=== PATIENT | male | born 1965 | race Caucasian/White ===

== ENCOUNTER 2023-03-07 10:29 | Emergency (ER) | payer OTHER, SELFPAY ==
[2023-03-07 10:30] VITALS: BP 128/74; PULSE 79; RESP 18; TEMP 37.4; O2SAT 94
--- NOTE | 2023-03-07 10:41 | ED.GENADUL_ITS ---
Discharge Plan Disposition Patient Disposition: Home Discharge Details Clinical Impression: Normocytic anemia, Acute right lower quadrant pain, Acute diverticulitis Primary Care Provider: Unknown,Unknown ED Provider: Evert Renae Home Meds and New Rx's Prescriptions: New amoxicillin-pot clavulanate 875-125 mg tablet 1 tab PO BID 5 Days Qty: 10 0RF Continued omeprazole 20 mg Capsule,Delayed Release(Dr/Ec) 20 mg PO BID meloxicam 7.5 mg Tablet 7.5 mg PO BID olanzapine 10 mg Tablet 10 mg PO DAILY PRN Alvesco 80 mcg/actuation Hfa Aerosol Inhaler 1 - 2 puff INHALATION BID acetaminophen 325 mg Tablet 650 mg PO BID PRN albuterol sulfate [Ventolin HFA] 90 mcg/actuation HFA aerosol inhaler 2 puff INHALATION TID PRN Patient Comments: INAHLE 2 PUFFS 6 TIMES PER DAY NEEDED FOR WHEEZING Discharge Instructions Instructions: Diverticulitis (ED) Additional Instructions: Please read all of the information that accompanies these instructions. You were seen in the emergency department for your abdominal pain you. You are found to have diverticulitis which is an inflammation of your large intestines for which you are receiving an antibiotic that you should take as directed. Please return to the emergency department if you develop worsening pain fevers or cannot tolerate your antibiotics. For your pain please take medications as follows: 1. Take acetaminophen (Tylenol), 1,000 mg (two 500 mg tabs) every 6 hours 2. Take ibuprofen (Advil), 400 mg every 6 hours. Medical Decision Making This is an overall well-appearing normothermic and not tachycardic 57-year-old male with no prior history of colonoscopies now with right lower quadrant tenderness concerning for appendicitis, mass, and atypical diverticulitis. No pain out of proportion to suggest necrotizing soft tissue infection. No nausea nor vomiting to suggest small bowel obstruction and no history of any abdominal surgeries. No rash to abdomen to suggest zoster. Given right lower quadrant tenderness I am not concerned for ACS I did not obtain an ECG. No testicular pain to suggest torsion. No flank pain to suggest ureterolithiasis. No dysuria nor frequency to suggest urinary tract infection. No diarrhea nor any fevers nor history of inflammatory bowel disease so my suspicion for Crohn's or ulcerative colitis is low. Furthermore based on the patient's age new onset inflammatory bowel disease is unlikely. We will plan on obtaining CT scan with IV contrast and basic labs. Given the patient is incarcerated my suspicion for withdrawal from ethanol is low. I considered pancreatitis however the patient is not having any epigastric tenderness so I did not order a lipase. 12 PM Reassuring comprehensive metabolic panel. No prior for comparison. Normal renal function. CBC with mild normocytic anemia. No leukocytosis nor thrombocytopenia. 1:[address] skin showing acute uncomplicated diverticulitis with no signs of abscess nor perforation. Patient has not required IV analgesia. We will treat pain orally with acetaminophen and ibuprofen. He has been tolerating p.o. so I feel that he warrants an empiric trial of expectant outpatient management. Will antibiosis with amoxicillin clavulanic acid for 5 days and give patient initial dose in the ED. I have asked patient to return to the emergency department if he develops fevers, worsening pain, or if he cannot tolerate his oral antibiotics secondary to nausea or vomiting. HPI General Date/Time Provider Initiated Documentation: 03/07/23 10:41 . HPI Narrative: This is a 57-year-old male with a history of tobacco use and COPD currently incarcerated now in the emergency department in the setting of right lower quadrant pain. Patient notes that he had right lower quadrant pain that was gradual onset yesterday. Today it steadily worsened. He has not had any fevers diarrhea nausea nor vomiting. He has never had a colonoscopy and he denies any past abdominal surgeries. He has not noticed any rash to his abdomen. He denies any trauma to his abdomen. He denies dysuria and hematuria. He has never had ureterolithiasis. He denies chest pain and shortness of breath. Related Data Home Medications Medication Instructions Recorded Confirmed acetaminophen 325 mg tablet 650 mg PO BID PRN 03/07/23 03/07/23 albuterol sulfate 90 mcg/actuation 2 puff inhalation TID PRN 03/07/23 03/07/23 aerosol inhaler (Ventolin HFA) amoxicillin 875 mg-potassium 1 tab PO BID 5 days #10 tabs 03/07/23 clavulanate 125 mg tablet ciclesonide 80 mcg/actuation 1 - 2 puff inhalation BID 03/07/23 03/07/23 aerosol inhaler (Alvesco) meloxicam 7.5 mg tablet 7.5 mg PO BID 03/07/23 03/07/23 olanzapine 10 mg tablet 10 mg PO DAILY PRN 03/07/23 03/07/23 omeprazole 20 mg capsule,delayed 20 mg PO BID 03/07/23 03/07/23 release Previous Rx's Medication Instructions Recorded amoxicillin 875 mg-potassium 1 tab PO BID 5 days #10 tabs 03/07/23 clavulanate 125 mg tablet Allergies Allergy/AdvReac Type Severity Reaction Status Date / Time No Known Allergies Allergy Unverified 03/07/23 10:48 General Stated Complaint: Abd Prob LEONEL: 3 PFSH All Active Problems (Updated 03/07/23 @ 12:44 by Evert Renae MD) Normocytic anemia (Acute) Acute right lower quadrant pain (Acute) Acute diverticulitis (Acute) Social History Smoking risk assessment performed?: No Exam Narrative Exam Narrative: General: Well-appearing in no acute distress speaking in complete sentences. Shackled to stretcher with handcuffs on left lower extremity. Head: Normocephalic, atraumatic. Eye: Pupils equal, round reactive to light. Extraocular eye movements intact. No conjunctival injection. No scleral icterus. Ear, nose, mouth, throat: Grossly normal inspection. Normal voice, handling secretions normally. Neck: Trachea midline. Cardiovascular: Well-perfused distal extremities. Regular rate and rhythm. Respiratory: Nonlabored respiration. Clear lungs bilaterally. Gastrointestinal: Nondistended abdomen. Soft minimal right lower quadrant tenderness. No rebound. No guarding. Musculoskeletal: No edema. Moving all 4 extremities spontaneously. Skin: Normal for age and race, grossly normal temperature and turgor. No acute rash. Neurologic: Alert and appropriate, no apparent acute deficits. Psychiatric: Mood and manner are appropriate. Grooming and personal hygiene are appropriate. Course Vital Signs Vital signs: Vital Signs Temperature 37.4 C 03/07/23 10:30 Pulse 79 03/07/23 10:30 Respiratory Rate 18 03/07/23 10:30 Blood Pressure 128/74 03/07/23 10:30 Pulse Oximetry 94 03/07/23 10:30 Temperature 37.4 C 03/07/23 10:30 Temperature Source Skin 03/07/23 10:30 Pulse 79 03/07/23 10:30 Respiratory Rate 18 03/07/23 10:30 Blood Pressure 128/74 03/07/23 10:30 Blood Pressure Position Supine 03/07/23 10:30 Pulse Oximetry 94 03/07/23 10:30 Oxygen Delivery Method Room Air 03/07/23 10:30 Oxygen Flow Rate 0 03/07/23 10:30 Pain Level 8 03/07/23 10:30
--- NOTE | 2023-03-07 10:45 | DI.CT_ITS ---
Exam(s) CT ABDOMEN PELVIS W EXAM: CT ABDOMEN PELVIS W CLINICAL HISTORY: Right lower quadrant pain. TECHNIQUE: Imaging Protocol: Axial computed tomography images with coronal and sagittal reformatted images were created and reviewed CONTRAST MATERIAL: Intravenous: Omnipaque 350 Contrast volume:100 ml Oral: no COMPARISON: No exams were available for comparison FINDINGS: ABDOMEN: Lung Bases: Normal where visualized. Liver: Normal density. No measurable mass. Gallbladder and biliary tract: No radiodense calculus or dilation. Pancreas: Normal density, no abnormal calcifications or inflammatory process. Spleen: Normal. Kidneys: Normal size, contour and axis. No radiodense stones or obstructive uropathy. No suspicious m asses seen. Adrenal glands: No masses seen. Abdominal Aorta: Abdominal portion non-dilated. Soft tissues: Unremarkable. PELVIS: Bladder: Distended. No gross wall thickening. No calculi.No focal mass. Bowel: No obstruction. diverticulosis noted throughout the colon. Area of inflammation at the cecum consistent with diverticulitis. Appendix normal. Peritoneal cavity: Mild inflammation around the cecum. No perforation or abscess. Bones: Degenerative changes. Reproductive organs: Within normal limits. Lymph nodes: Unremarkable. Impression: Uncomplicated diverticulitis at the cecum. Findings discussed with Dr. Renae of the emergency department. RADIATION DOSE DELIVERED: 706.79mGy.cm Total DLP DATA REPOSITORY: All CT scans at this facility are submitted to the National Radiology Data Registry (NRDR) Dose Index Registry (DIR) with the [employer] ([employer]). RADIATION OPTIMIZATION: All CT scans at this facility use at least one of these dose optimization te chniques: automated exposure control; mA and/or kV adjustment per patient size (includes targeted exa ms where dose is matched to clinical indication); or iterative reconstruction.
[2023-03-07 11:18] LABS: Abs Immature Grans 0.07 10^3/uL (0.0-0.06); Absolute Basophil Count 0.03 10^3/uL (0.0-0.2); Absolute Lymphocyte Count 1.57 10^3/uL (1.2-3.4); Absolute Monocyte Count 0.71 10^3/uL (0.1-0.8); Absolute Neutrophil Count 6.04 10^3/uL (1.2-6.7); Basophils % 0.3; Eosinophils % 2.3; HCT 35.6 % (40.0-50.0); HGB 12.1 g/dL (13.5-17.5); Immature Grans % 0.8; Lymphocytes % 18.2; MCH 30.8 pg (27.0-33.0); MCV 91 fL (80-95); MPV 9.5 fL (8.0-11.0); Monocytes % 8.2; Neutrophils % 70.2; Platelet Count 199 10^3/uL (130-400); RBC 3.93 10^6/uL (4.36-5.78); RDW 12.9 % (11.8-14.1); RDW-SD 43.1 fL; WBC 8.62 10^3/uL (4.4-10.8)
[2023-03-07 11:24] LABS: ALT 27 U/L (16-63); AST 13 U/L (15-37); Albumin 3.4 g/dL (3.4-5.0); Alkaline Phosphatase 75 U/L (46-116); Anion Gap 7.9 mmol/L (3-11); BUN 16 mg/dL (7-18); Bilirubin, Total 0.3 mg/dL (0.2-1.0); CO2 29.1 mmol/L (21.0-32.0); CREATININE 0.8 mg/dL (0.70-1.30); Calcium 8.5 mg/dL (8.5-10.1); Chloride 106 mmol/L (98-107); Estimated GFR 102.58 (mL/min/1.73m2); Glucose 101 mg/dL (74-106); Potassium 3.9 mmol/L (3.5-5.1); Sodium 143 mmol/L (136-145); Total Protein 6.6 g/dL (6.4-8.2)
[2023-03-07] MEDS: Normal Saline 1,000 ML 1000 ML IV (11:32)
[2023-03-07 11:50] VITALS: BP 124/67; PULSE 65; RESP 18; TEMP 36.4; O2SAT 95
[2023-03-07] MEDS: Normal Saline - Diluent 50 ML VIAL IV (12:19)
[2023-03-07] MEDS: Omnipaque 350 MG/ML 500 ML BTL-Imaging package IJ (12:20)
[2023-03-07] MEDS: Normal Saline Flush 10 ML SYR IVP (12:20)
[2023-03-07 12:55] VITALS: BP 156/95; PULSE 75; RESP 15; TEMP 36.5; O2SAT 96
[2023-03-07] MEDS: Amoxicillin 875/Clav. 125 TAB PO (12:56)
[2023-03-07] MEDS: Acetaminophen 500 MG TAB 1000 MG PO (12:56)
[2023-03-07] MEDS: Ibuprofen 600 MG TAB PO (12:57)
== END 2023-03-07 13:03 | disposition home or self-care (01) ==
PROVIDERS: Emergency Provider Emergency Medicine
DX: D64.9 Anemia, unspecified (principal); K57.92 Diverticulitis of intestine, part unspecified, without perforation or abscess without bleeding; J44.9 Chronic obstructive pulmonary disease, unspecified
CPT/HCPCS: 36415; 80053; 96360; 99285; 74177; 85025; 99284

== ENCOUNTER 2023-09-27 13:47 | Emergency (ER) | payer OTHER, SELFPAY ==
--- NOTE | 2023-09-27 13:45 | DI.CT_ITS ---
Exam(s) CT ABDOMEN PELVIS W EXAM: CT ABDOMEN PELVIS W CLINICAL HISTORY: RLQ abdominal pain. TECHNIQUE: Imaging Protocol: Axial computed tomography images with coronal and sagittal reformatted images were created and reviewed CONTRAST MATERIAL: Intravenous: Omnipaque 350 Contrast volume:100 ml Oral: no COMPARISON: CT CT ABDOMEN PELVIS W from 03/07/2023 FINDINGS: ABDOMEN and PELVIS: Lung Bases: No acute findings. Liver: Normal density. No measurable mass. Gallbladder and biliary tract: No radiodense calculus or dilation. Pancreas: Normal density. No abnormal calcifications or inflammatory process. No evidence of mass. Spleen: Normal. Kidneys: Normal size, contour and axis. No radiodense stones. No obstructive uropathy. No suspicious masses seen. Adrenal glands: No masses seen. Vasculature: Abdominal aorta non-dilated. Atherosclerotic changes. Soft tissues: Small fatty containing inguinal hernias. Bladder: No gross wall thickening. No calculi.No focal mass. Bowel: Diverticulosis. No obstruction. Thickening of the lateral wall of the cecum with some STIR s tranding in the surrounding fat. Diverticula are noted in the vicinity. This may represent divertic ulitis however mass not excluded.. This is in the same location as on the prior exam. Appendix norm al. Peritoneal cavity: No ascites. No focal collection or mesenteric inflammatory response. Bones: Unremarkable for age. Reproductive organs: Within normal limits. Lymph nodes: Small lymph nodes noted right lower quadrant. Present on prior exam. IMPRESSION:: Wall thickening and stool and surrounding stranding at the cecum may represent divertic ulitis. Malignancy should also be considered since this is in the same location as on the prior exa m. Colonoscopy recommended. RADIATION DOSE DELIVERED: Total DLP DATA REPOSITORY: All CT scans at this facility are submitted to the National Radiology Data Registry (NRDR) Dose Index Registry (DIR) with the [employer] (ACR). RADIATION OPTIMIZATION: All CT scans at this facility use at least one of these dose optimization te chniques: automated exposure control; mA and/or kV adjustment per patient size (includes targeted exa ms where dose is matched to clinical indication); or iterative reconstruction.
[2023-09-27 13:53] VITALS: BP 137/61; PULSE 76; RESP 16; TEMP 36.7
--- NOTE | 2023-09-27 13:57 | W.ED.GENAD ---
Discharge Plan Disposition Patient Disposition: [facility] Discharge Details Clinical Impression: Diverticulitis, Acute right lower quadrant pain Primary Care Provider: Unknown,Unknown ED Provider: Reina Jordan Home Meds and New Rx's Prescriptions: New amoxicillin-pot clavulanate 875-125 mg tablet 1 tab PO BID 7 Days Qty: 14 0RF No Action meloxicam 7.5 mg Tablet 7.5 mg PO BID Alvesco 80 mcg/actuation Hfa Aerosol Inhaler 1 - 2 puff INHALATION BID acetaminophen 325 mg Tablet 650 mg PO BID PRN albuterol sulfate [Ventolin HFA] 90 mcg/actuation HFA aerosol inhaler 2 puff INHALATION TID PRN Patient Comments: INAHLE 2 PUFFS 6 TIMES PER DAY NEEDED FOR WHEEZING Discharge Instructions Instructions: Diverticulitis (ED) Additional Instructions: Please take antibiotics twice daily as prescribed. Return to the emergency department with worsened pain, rectal bleeding, nausea, vomiting, worsened fever or inability to tolerate the medication. Please schedule a colonoscopy after you complete your medication course to reevaluate your bowel and ensure that this area of inflammation around your cecum has healed. Referrals: [facility] [OTHER] - (needs colonoscopy ) Medical Decision Making Emergent evaluation of abdominal pain. Patient is currently incarcerated. He is hemodynamically stable and afebrile here. Slightly elevated temperature at detention. He does have some abdominal tenderness on exam but overall exam reassuring. Given his history of diverticulitis, will evaluate with CT imaging, check blood work, and reassess for acute surgical needs. 1415: WBC not elevated. Prior anemia resolved. 1425: ESR within normal limits, CRP slightly elevated. CMP without significant derangement. 1535: exam remains benign. CT scan reviewed. He has no appendicitis, there is inflammatory change around the cecum. I reviewed the CT scan obtained in February of this year and noted the same changes to the cecum. I have placed a referral for the patient to the surgery clinic to get a colonoscopy. I feel that given the persistent location of these inflammatory changes the cecum should be further evaluated. The patient's lab work is very reassuring. It is unclear if this is a true diverticulitis or another abnormality in this area. However given his acute presentation of pain I will treat for diverticulitis. I will give the first dose of Augmentin in the emergency department and discharged with a prescription for this. Medical Records Medical records reviewed: Yes I reviewed the patient's medical records. Medical records narrative: Diverticulitis in February 2023 Lab Data Lab results reviewed: Yes I reviewed the patient's lab results. HPI General Date/Time Provider Initiated Documentation: 09/27/23 13:56. Limitations to Documentation: no limitations. Information obtained by: patient. HPI Narrative: 57-year-old gentleman with past medical history of diverticulitis presents for evaluation of right lower quadrant abdominal pain. Patient reports that symptoms started yesterday. It is constant. It is localized to the right lower quadrant. Not associated with nausea and vomiting. Slightly elevated temperature at detention of 99. He received a dose of Tylenol earlier this morning. He denies any difficulty with urination, hematuria. Denies any history of kidney stone. Denies any changes in his bowel. Related Data Home Medications Medication Instructions Recorded Confirmed acetaminophen 325 mg tablet 650 mg PO BID PRN 03/07/23 09/27/23 albuterol sulfate 90 mcg/actuation 2 puff inhalation TID PRN 03/07/23 09/27/23 aerosol inhaler (Ventolin HFA) ciclesonide 80 mcg/actuation 1 - 2 puff inhalation BID 03/07/23 09/27/23 aerosol inhaler (Alvesco) meloxicam 7.5 mg tablet 7.5 mg PO BID 03/07/23 09/27/23 amoxicillin 875 mg-potassium 1 tab PO BID 7 days #14 tabs 09/27/23 clavulanate 125 mg tablet Previous Rx's Medication Instructions Recorded amoxicillin 875 mg-potassium 1 tab PO BID 7 days #14 tabs 09/27/23 clavulanate 125 mg tablet Allergies Allergy/AdvReac Type Severity Reaction Status Date / Time No Known Allergies Allergy Unverified 09/27/23 14:02 General Stated Complaint: Abd Prob LEONEL: 3 PFSH All Active Problems (Updated 09/27/23 @ 15:33 by Reina Jordan MD) Acute right lower quadrant pain (Acute) Diverticulitis (Chronic) Social History Smoking/Tobacco Use Status: Former Tobacco Use Quit Date: 05/27/23 Smoking risk assessment performed?: Yes Alcohol Intake: former Substance use type: does not use Housing: homeless Do you feel safe at home: Yes Do you feel safe in your relationship?: Yes Exam Narrative Exam Narrative: Review of Systems: All systems reviewed & are unremarkable except as noted in HPI and below: Initial examination limited as the patient is in police custody and wrist, ankle and waist handcuffs are in place CONSTITUTIONAL: Alert and oriented Well-developed, no acute distress HEENT: NACT EYES: PERRL, no conjunctival injection EARS: no external abnormality NOSE nares patent MOUTH Moist MM NECK: Symmetric, trachea midline, No thyromegaly THROAT oropharynx clear CVS: RRR, No murmurs or gallops. Peripheral pulses 2+ and equal in all extremities Brisk capillary refill in all extremities. No peripheral edema RESP: Unlabored respiratory effort, Clear to auscultation bilaterally No wheezes rales or rhonchi GI: Soft, mild right lower quadrant tenderness, no guarding or rebound, Nondistended, No organomegaly, no CVAT MSK: Extremities with full range of motion, no deformity or TTP SKIN: Warm, Dry. No rashes or lesions. NEURO: No focal neurologic deficits. 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
[2023-09-27 14:08] LABS: Abs Immature Grans 0.04 10^3/uL (0.0-0.06); Absolute Basophil Count 0.05 10^3/uL (0.0-0.2); Absolute Eosinophil Count 0.29 10^3/uL (0.0-0.7); Absolute Lymphocyte Count 2.19 10^3/uL (1.2-3.4); Absolute Monocyte Count 0.76 10^3/uL (0.1-0.8); Absolute Neutrophil Count 4.45 10^3/uL (1.2-6.7); Basophils % 0.6; Eosinophils % 3.7; HCT 40.8 % (40.0-50.0); HGB 14.3 g/dL (13.5-17.5); Immature Grans % 0.5; Lymphocytes % 28.1; MCH 31.1 pg (27.0-33.0); MCV 89 fL (80-95); MPV 9.4 fL (8.0-11.0); Monocytes % 9.8; Neutrophils % 57.3; Platelet Count 232 10^3/uL (130-400); RDW 12.2 % (11.8-14.1); RDW-SD 39.1 fL; WBC 7.78 10^3/uL (4.4-10.8)
[2023-09-27] MEDS: Ondansetron 4 MG/2 ML VIAL IVP (14:12)
[2023-09-27] MEDS: Ketorolac 15 MG/ML VIAL 10 MG IVP (14:12)
[2023-09-27 14:19] LABS: ESR 4 mm/hr (0-20)
[2023-09-27 14:23] LABS: ALT 19 U/L (16-63); AST 16 U/L (15-37); Albumin 3.8 g/dL (3.4-5.0); Alkaline Phosphatase 96 U/L (46-116); Anion Gap 4.4 mmol/L (3-11); BUN 13 mg/dL (7-18); Bilirubin, Total 0.5 mg/dL (0.2-1.0); CO2 32.6 mmol/L (21.0-32.0); Calcium 9.2 mg/dL (8.5-10.1); Chloride 104 mmol/L (98-107); Estimated GFR 87.24 (mL/min/1.73m2); Glucose 115 mg/dL (74-106); Potassium 3.9 mmol/L (3.5-5.1); Sodium 141 mmol/L (136-145); Total Protein 7.3 g/dL (6.4-8.2)
[2023-09-27] MEDS: Normal Saline - Diluent 50 ML VIAL IJ (14:48)
[2023-09-27] MEDS: Normal Saline Flush 10 ML SYR IVP (14:48)
[2023-09-27] MEDS: Omnipaque 350 MG/ML 100 ML BTL IJ (14:49)
--- NOTE | 2023-09-27 15:11 | DI.VRAD_ITS ---
PROCEDURE INFORMATION: Exam: CT Abdomen And Pelvis With Contrast Exam date and time: 09/27/2023 2:47 PM Age: 57 years old Clinical indication: Other: Rlq abdominal pain TECHNIQUE: Imaging protocol: Computed tomography of the abdomen and pelvis with contrast. Radiation optimization: All CT scans at this facility use at least one of these dose optimization techniques: automated exposure control; mA and/or kV adjustment per patient size (includes targeted exams where dose is matched to clinical indication); or iterative reconstruction. Contrast material: OMNI 350; Contrast volume: 100 ml; Contrast route: INTRAVENOUS (IV); COMPARISON: CT ABDOMEN PELVIS W 03/07/2023 11:59 AM FINDINGS: Liver: Normal. No mass. Gallbladder and bile ducts: Normal. No calcified stones. No ductal dilation. Pancreas: Normal. No ductal dilation. Spleen: Normal. No splenomegaly. Adrenal glands: Normal. No mass. Kidneys and ureters: Normal. No hydronephrosis. Stomach and bowel: Diverticulosis of the colon. Bowel wall thickening and perinephric inflammatory changes in the cecum. Series 4, image 41-44. This may represent diverticulitis of the cecum.. Appendix: Normal appendix Intraperitoneal space: Unremarkable. No free air. No significant fluid collection. Vasculature: Unremarkable. No abdominal aortic aneurysm. Lymph nodes: Unremarkable. No enlarged lymph nodes. Urinary bladder: Unremarkable as visualized. Reproductive: Unremarkable as visualized. Bones/joints: Unremarkable. No acute fracture. Soft tissues: Unremarkable. IMPRESSION: Diverticulosis of the colon. Bowel wall thickening and perinephric inflammatory changes in the cecum. Series 4, image 41-44. This may represent diverticulitis of the cecum.. . As an underlying malignancy cannot be entirely excluded, a follow-up examination after a course of treatment is recommended if clinically warranted. Impression. Dictated and Authenticated by: René Ruby MD. Ordering:[facility] Nikki Ibarra MD
[2023-09-27] MEDS: Amoxicillin 875/Clav. 125 TAB PO (15:50)
[2023-09-27 15:53] VITALS: BP 132/80; PULSE 77; RESP 18; TEMP 36.9; O2SAT 96
--- NOTE | 2023-09-27 16:02 | NUR.NOTE ---
[facility] is being referred for [facility]. Referral for awareness. Nursing Note:
== END 2023-09-27 16:03 ==
LOC: ER 13:51 → RED 13:51 → ER 13:52
PROVIDERS: Emergency Provider Emergency Medicine
DX: R10.31 Right lower quadrant pain (principal); K57.92 Diverticulitis of intestine, part unspecified, without perforation or abscess without bleeding; R50.9 Fever, unspecified; Z87.891 Personal history of nicotine dependence
CPT/HCPCS: 36415; 80053; 85652; 96374; 96375; 99285; 74177; 85025; 86140; 99284; J1885; J2405; J3490

== ENCOUNTER 2023-11-28 06:15 | Day surgery (SDC) | payer OTHER, SELFPAY ==
--- NOTE | 2023-11-27 16:36 | ANES.PREOP_ITS ---
General Info Date of Service Date Performed: 11/28/23 Height: 5 ft 7 in Weight: 79.974 kg Body Mass Index (BMI): 27.6 Surgical Procedure: Operation Date: 11/28/23 07:35 Proposed Procedure Side Surgeon p Colonoscopy Popeye Silva MD Meds Allergies and Home Medications Allergies Allergy/AdvReac Type Severity Reaction Status Date / Time No Known Allergies Allergy Unverified 11/28/23 06:27 Home Medication Medication Instructions Recorded acetaminophen 325 mg tablet 650 mg PO BID PRN 03/07/23 albuterol sulfate 90 mcg/actuation 2 puff inhalation TID PRN 03/07/23 aerosol inhaler (Ventolin HFA) aspirin 81 mg tablet,delayed 81 mg PO DAILY 10/08/23 release cetirizine 10 mg capsule (All Day 10 mg PO DAILY PRN 10/08/23 Allergy (cetirizine)) terbinafine HCl 250 mg tablet 250 mg PO DAILY 10/08/23 mometasone-formoterol HFA 100 2 inh inhalation BID 11/27/23 mcg-5 mcg/actuation aerosol inhaler (Dulera) Current Visit Medications: Current Medications Generic Name Dose Route Start Last Admin Trade Name Freq PRN Reason Stop Dose Admin Ringer's Solution 1,000 mls @ 80 mls/hr 11/28/23 06:00 IV 11/28/23 23:59 INFUSION RITCHIE IV Miscellaneous Supplies 1 each 11/28/23 06:00 Iv Access IV 11/28/23 23:59 DIRECTED RITCHIE Sodium Chloride 0 ml 11/28/23 06:00 Normal Saline Flush 10 Ml Syr IV 11/28/23 23:59 PRN PRN Sodium Chloride 0 ml 11/28/23 06:00 Normal Saline 10 Ml Vial IJ 11/28/23 23:59 DIRECTED PRN Sterile Water 0 ml 11/28/23 06:00 Water,Injection,Sterile 10 Ml Vial IJ 11/28/23 23:59 DIRECTED PRN PFSH Active Problems Active Problems: Problem Status Onset Code Abnormal CT scan, colon R93.3 Diverticulosis K57.90 COPD (chronic obstructive pulmonary disease) J44.9 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 psychiatric conditions- notes from psychiatric assessment were vague. Depression Olecranon bursitis, right elbow Headache Lactose intolerance Tobacco Smoking/Tobacco Use Status: Former Tobacco Use Alcohol Alcohol Intake: former Substance Use Substance use type: does not use Vital Signs and Lab Results Vital Signs Most Recent Vital Signs in EMR: Temp Pulse Resp BP Pulse Ox 36.7 C 82 18 141/97 H 96 11/28/23 06:15 11/28/23 06:15 11/28/23 06:15 11/28/23 06:15 11/28/23 06:15 Lab Results Blood Type / Crossmatch: No Data to Display Complete Blood Count: No Data to Display Complete Metabolic Panel: No Data to Display Liver Function Panel: No Data to Display Coagulation Panel: No Data to Display Cardiac Panel: No Data to Display Arterial Blood Gas: No Data to Display Venous Blood Gas: No Data to Display Pancreas Panel: No Data to Display Thyroid Panel: 2 No Data to Display Infectious Disease: No Data to Display Blood Cultures: No Data to Display Toxicology Panel: No Data to Display Anesthesia Assessment and Plan Anesthesia History Personal History: Unknown Anesthesia History Family History: Family History Unknown Exercise Tolerance Exercise Tolerance: Metabolic Equivalents>4 Cardiac & Pulmonary Exam Cardiac Exam: Normal S1/S2 Heart Sounds Pulmonary Exam: Clear Bilateral Breath Sounds Implantable Cardiac Device Does patient have a Pacemaker or an ICD?: No Airway Exam Known Difficult Airway: No Mallampati Class: 3 Mouth Opening: Narrow (< 3cm) Thyromental Distance: Less than 3 cm Neck Range of Motion: Full ROM Neck Circumference: Normal Teeth Condition: Normal Dentition and Edentulous ASA Classification ASA Score: ASA 2 Emergency Case?: No NPO Status NPO Status: NPO Clears >2 hours, Solids >8 hours Anesthesia Plan Resuscitation Status: Full Code Anesthesia Technique: General Anesthesia Airway Planned: Natural Airway Monitors Used: Standard Monitors Preoperative Comments:: 58 yo male for colo. Sig PMHx: COPD (albuterol, Dulera), PTSD/bipolar/depression, former smoker, former EtOH.
[2023-11-28 06:15] VITALS: BP 141/97; PULSE 82; RESP 18; TEMP 36.7; O2SAT 96
[2023-11-28] MEDS: Lactated Ringers 1,000 ML 80 ML IV (06:47)
[2023-11-28 07:05] VITALS: BMI 27.6
--- NOTE | 2023-11-28 07:39 | SCONE_ITS ---
Date of service: 11/28/23 Time of Service: 07:40 Assessment and Plan Assessment and plan (1) Diverticulosis: Status: Acute Assessment and plan: 58-year-old man with self?limited attack of diverticulitis/abdominal pain. He needs a colonoscopy Overall plan: Colonoscopy History of Present Illness Narrative: 58-year-old man had an attack of diverticulitis. It was self?limited. He has never had a colonoscopy before. He does not have symptoms anymore. He does not have a family history of colon cancer. He has never had intra-abdominal surgery. PFSH All Active Problems Abnormal CT scan, colon (Acute) Diverticulosis (Acute) Right-sided COPD (chronic obstructive pulmonary disease) (Chronic) Other psychotic disorder not due to a substance or known physiological condition (Acute) Alcohol abuse (Chronic) Medical History Bipolar disorder with psychotic features PTSD (post-traumatic stress disorder) [place] corrections unable to further elaborate on pt. psychiatric conditions- notes from psychiatric assessment were vague. Depression Olecranon bursitis, right elbow Headache Lactose intolerance Social History Smoking/Tobacco Use Status: Former Tobacco Use Quit Date: 05/27/23 Smoking risk assessment performed?: Yes Alcohol Intake: former Substance use type: does not use Housing: other Exam Narrative Exam Narrative: General: Nontoxic, comfortable and interactive Neuro: Alert and oriented x 3 Psych: Good mood and affect, good insight and understanding into his condition Heart: Regular Chest: Nonlabored breathing and no wheezing. No visible shortness of breath. Results Last Vital Signs Temp 98.1 F 11/28/23 06:15 Pulse 82 11/28/23 06:15 Resp 18 11/28/23 06:15 BP 141/97 H 11/28/23 06:15 Pulse Ox 96 11/28/23 06:15
--- NOTE | 2023-11-28 08:10 | W.COLOREPORT ---
Date of service: 11/28/23 Time of Service: 08:10 Colonoscopy Report Procedure Description: PROCEDURES PERFORMED: 1. Colonoscopy PREOPERATIVE DIAGNOSIS: Screening colonoscopy POSTOPERATIVE DIAGNOSIS: Sigmoid diverticulosis, grade 1-2 internal hemorrhoids SURGEON: Ara Silva MD INDICATION FOR PROCEDURE: The patient is a 58-year-old man who had an attack of diverticulitis. He has never had a colonoscopy before. He has no family history of colon cancer. FINDINGS: No polyps. Diverticular changes present in the sigmoid colon mostly. No active inflammation. Grade 1?2 internal hemorrhoids. SURVEILLANCE interval/FOLLOW-UP: 10 years SPECIMENS: None EBL: Minimal COMPLICATIONS: None QUALITY of prep: Excellent Procedure in detail: The patient gave written consent and was in agreement with the indications, the potential risks as well as the benefits of the procedure. They were taken to the endoscopy suite and laid in the left lateral decubitus position. A timeout was performed and anesthesia was administered which was tolerated well. I started the procedure. Digital rectal and visual examination was performed and grossly within normal limits. A well-lubricated flexible colonoscope was then introduced and passed without any notable difficulty all the way to the cecum identified by the ileocecal valve and the appendiceal orifice. The scope was then slowly withdrawn with the above-noted findings. The patient tolerated the procedure well and was taken to the PACU in hemodynamically stable condition.
[2023-11-28 08:12] VITALS: BP 134/90; PULSE 73; RESP 16; TEMP 36.4; O2SAT 97
--- NOTE | 2023-11-28 08:14 | W.PM.DSUDISC ---
Date of service: 11/28/23 Time of Service: 08:14 Discharge Plan Disposition Patient Disposition: Home Condition: Good Discharge Details Attending Provider: Popeye Silva Primary Care Provider: Unknown,Unknown Home Meds and New Rx's Prescriptions: No Action terbinafine HCl 250 mg tablet 250 mg PO DAILY All Day Allergy (cetirizine) 10 mg capsule 10 mg PO DAILY PRN aspirin 81 mg tablet,delayed release (DR/EC) 81 mg PO DAILY acetaminophen 325 mg Tablet 650 mg PO BID PRN albuterol sulfate [Ventolin HFA] 90 mcg/actuation HFA aerosol inhaler 2 puff INHALATION TID PRN Patient Comments: INAHLE 2 PUFFS 6 TIMES PER DAY NEEDED FOR WHEEZING Dulera 100-5 mcg/actuation HFA aerosol inhaler 2 inh inhalation BID Discharge Instructions Additional Instructions: FINDINGS: No polyps or concerning findings such as tumors were seen. You do have diverticular disease which is extremely common, benign, and nothing needs to be done about it unless you are having recurrent attacks on a regular basis. Mild hemorrhoid disease was present today. This is also extremely common, benign and nothing needs to be done about it. Stand Alone Forms: Colonoscopy Post Instructions Activity:: Activity as Tolerated Diet:: As Tolerated DS: Diagnosis Discharge Diagnosis (1) Diverticulosis: Status: Acute
[2023-11-28 08:39] VITALS: BP 151/98; PULSE 72; RESP 16; TEMP 36.5; O2SAT 97
--- NOTE | 2023-11-28 08:41 | W.ANESPOSTOP ---
Postoperative Evaluation Date, Time and Location Date Performed: 11/28/23 Time Performed: 08:20 Patient Location: Day Surgery Unit Vital Signs Most Recent Imported Vital Signs: Most Recent Vital Signs Temp Pulse Resp BP Pulse Ox 36.4 C L 73 16 134/90 97 11/28/23 08:12 11/28/23 08:12 11/28/23 08:12 11/28/23 08:12 11/28/23 08:12 Pain Score Most Recent Pain Score: Most Recent Pain Score Pain Level 0 11/28/23 08:12 Assessment Mental Status: Awake (Alert & Oriented to Patient Baseline) Airway and Respiratory Function: Patent airway with normal (patient baseline) respiratory exam Cardiovascular Function: Hemodynamically Stable Hydration Status: Adequately Hydrated Nausea & Vomiting: No Nausea or Vomiting Pain: Pt. Denies Any Pain Peripheral Nerve Block: Patient did not receive a nerve block
== END 2023-11-28 08:55 | disposition home or self-care (01) ==
PROVIDERS: Visit Provider Student in an Organized Health Care Education/Training Program
PROC: 0DJD8ZZ Inspection of Lower Intestinal Tract, Via Natural or Artificial Opening Endoscopic (ICD-10-PCS; CPT 45378; principal; 2023-11-28 07:30)
DX: Z12.11 Encounter for screening for malignant neoplasm of colon (principal); K57.90 Diverticulosis of intestine, part unspecified, without perforation or abscess without bleeding; K64.0 First degree hemorrhoids; K64.1 Second degree hemorrhoids; J44.9 Chronic obstructive pulmonary disease, unspecified; F10.10 Alcohol abuse, uncomplicated; R93.3 Abnormal findings on diagnostic imaging of other parts of digestive tract; Z87.891 Personal history of nicotine dependence; F28 Other psychotic disorder not due to a substance or known physiological condition
CPT/HCPCS: 45378; 00123; J2704